=== PATIENT | female | born 1995 | race Caucasian/White ===

== ENCOUNTER → 2017-04-18 | Outpatient (CLI) | payer OTHER ==
[~2017-04-18] MED LIST: SPRINTEC 28 DA1 EACH PO
== END | disposition disaster alternative care site (69) ==
LOC: GRAD 08:03
DX: R10.9 Unspecified abdominal pain (principal)

== ENCOUNTER → 2017-05-05 | Day surgery (SDC) | payer OTHER ==
[~2017-05-05] VITALS: Ht 160 cm; Wt 55.6 kg
== END | disposition disaster alternative care site (69) ==
LOC: GPOC 04-29 09:00 → GEND 07:06
PROC: 0DB68ZX Excision of Stomach, Via Natural or Artificial Opening Endoscopic, Diagnostic (ICD-10-PCS; principal; 2017-05-05)
PROC: 0DB88ZX Excision of Small Intestine, Via Natural or Artificial Opening Endoscopic, Diagnostic (ICD-10-PCS; 2017-05-05)
DX: R10.13 Epigastric pain (principal); R10.11 Right upper quadrant pain; Z88.0 Allergy status to penicillin; Z88.1 Allergy status to other antibiotic agents
CPT/HCPCS: J2001; J7030